=== PATIENT | female | born 1945 | race Caucasian/White ===

== ENCOUNTER → 2017-07-16 | Outpatient (CLI) | payer MEDICARE, OTHER | LOC: MC.RAD 10:45 | DX: Z12.31 Encounter for screening mammogram for malignant neoplasm of breast (principal) ==

== ENCOUNTER → 2018-07-03 | Outpatient (CLI) | payer MEDICARE, OTHER ==
[2018-07-03 11:43] LABS: BASO % 0.7 % (0.0-2.0); EOS # 0.1 (0.0-0.7); EOS % 1.2 % (0-4.0); GRAN # 2.6 (1.4-6.5); GRAN % 62.2 % (42.2-75.2); LYMPH # 1.1 (1.2-3.4); LYMPH % 27.3 % (20.0-51.0); MEAN CELL VOLUME 89 fl (80.0-100.0); MEAN CORPUSCULAR HEMOGLOBIN 30 pg (27.0-31.0); MEAN CORPUSCULAR HGB CONC 33 g/dl (33.0-37.0); MEAN PLATELET VOLUME 10.3 fl (7.4-10.4); MONO # 0.4 (0.1-0.6); MONO % 8.6 % (1.7-9.3); PLATELET COUNT 143 K/mm3 (130-400); RED BLOOD COUNT 4.06 M/mm3 (4.10-5.30); REDCELL DISTRIBUTION WIDTH-CV 13.2 % (11.5-14.5)
[2018-07-03 11:46] LABS: HEMATOCRIT 36.1 % (37.0-47.0)
[2018-07-03 11:59] LABS: ALANINE AMINOTRANSFERASE 24 U/L (9-52); ALBUMIN 3.7 gm/dL (3.5-5.0); ALKALINE PHOSPHATASE 68 U/L (50-136); ANION GAP 8 mmol/L (7-16); AST,SGOT 23 U/L (15-37); BILIRUBIN,TOTAL 0.9 mg/dL (0.0-1.0); BLOOD UREA NITROGEN 15 mg/dL (7-17); CALCIUM 9.1 mg/dL (8.4-10.2); CARBON DIOXIDE 27 mmol/L (22-30); CHLORIDE 103 mmol/L (98-107); CREATINE KINASE 52 U/L (30-135); CREATININE, serum 0.61 mg/dL (0.52-1.25); GLUCOSE 86 mg/dL (74-106); POTASSIUM 4.1 mmol/L (3.4-5.0); SODIUM 138 mmol/L (137-145); TOTAL PROTEIN 6.5 gm/dL (6.4-8.2)
[2018-07-03 12:12] LABS: TROPONIN-I < 0.012 ng/mL (0.000-0.034)
== END ==
LOC: COL.LAB 11:12
DX: R06.00 Dyspnea, unspecified (principal)

== ENCOUNTER → 2018-08-16 | Outpatient (CLI) | payer MEDICARE, OTHER | LOC: COL.RAD 14:20 | DX: J90 Pleural effusion, not elsewhere classified (principal); J98.4 Other disorders of lung | CPT/HCPCS: Q9967 ==

== ENCOUNTER → 2018-08-17 | Outpatient (CLI) | payer MEDICARE, OTHER | LOC: COL.VAS 12:09 | DX: I10 Essential (primary) hypertension (principal); R06.09 Other forms of dyspnea; I07.1 Rheumatic tricuspid insufficiency; I34.0 Nonrheumatic mitral (valve) insufficiency ==

== ENCOUNTER 2018-08-30 11:14 | Day surgery (SDC) | payer MEDICARE, OTHER ==
[~2018-08-30] VITALS: Ht 152.4 cm; Wt 62.3 kg
[2018-08-30] VITALS (9 sets, daily range): BP systolic 97–117; BP diastolic 49–77; PULSE 86–108; TEMP 96.9–98.1
[2018-08-30 11:43] LABS: HEMOGLOBIN 12.2 g/dl (12.5-16.0); MEAN CELL VOLUME 89 fl (80.0-100.0); MEAN CORPUSCULAR HEMOGLOBIN 29 pg (27.0-31.0); MEAN CORPUSCULAR HGB CONC 33 g/dl (33.0-37.0); MEAN PLATELET VOLUME 10.8 fl (7.4-10.4); PLATELET COUNT 161 K/mm3 (130-400); RED BLOOD COUNT 4.16 M/mm3 (4.10-5.30); REDCELL DISTRIBUTION WIDTH-CV 13.3 % (11.5-14.5)
[2018-08-30 11:46] LABS: HEMATOCRIT 36.9 % (37.0-47.0)
[2018-08-30 11:48] LABS: INR 1.1 (0.8-3.0); PROTHROMBIN TIME 12.7 SECONDS (9.7-12.8)
[2018-08-30 11:55] LABS: CREATININE, serum 0.72 mg/dL (0.52-1.25); POTASSIUM 3.3 mmol/L (3.4-5.0)
[2018-08-30] MEDS ORDERED: FOSAMAX 70MG TA70 MG PO (12:13)
[2018-08-30] MEDS ORDERED: ASPIRIN 81M81 MG/TA2 PO (12:14)
[2018-08-30] MEDS ORDERED: AMITRIPTYLINE H25 M1 PO (12:14)
[2018-08-30] MEDS ORDERED: COLACE 100100 MG/CAP PO (12:15)
[2018-08-30] MEDS ORDERED: LIPITOR20 MG PO (12:15)
[2018-08-30] MEDS ORDERED: LINZESS72 MCG PO (12:16)
[2018-08-30] MEDS ORDERED: ZESTRIL 20MG TA20 MG PO (12:18)
[2018-08-30] MEDS ORDERED: PRIL40 PO (12:18)
[2018-08-30] MEDS ORDERED: DITROPAN XL 5MG5 M1 PO (12:19)
[2018-08-30] MEDS ORDERED: EVISTA 60MG60 MG/TAB PO (12:20)
[2018-08-30] MEDS ORDERED: MIRALAX PA17 GM/Dose PO (12:20)
[2018-08-30] MEDS ORDERED: ZANTAC 150MG T150 MG PO (12:21)
[2018-08-30] MEDS ORDERED: VITAMIN D 1001000 IU (12:22)
[2018-08-30] MEDS ORDERED: MAXZIDE-25MG TA1 TAB PO (12:22)
[2018-08-30] MEDS ORDERED: ALDACTONE50 MG PO (14:52)
== END 2018-08-30 17:44 | disposition home or self-care (01) ==
LOC: COL.CAR 11:14
PROVIDERS: Internal Medicine Cardiovascular Disease
DX: I42.9 Cardiomyopathy, unspecified (principal); I38 Endocarditis, valve unspecified; I08.1 Rheumatic disorders of both mitral and tricuspid valves; E78.2 Mixed hyperlipidemia; I10 Essential (primary) hypertension; Z90.49 Acquired absence of other specified parts of digestive tract; Z90.710 Acquired absence of both cervix and uterus; Z79.82 Long term (current) use of aspirin; Z83.3 Family history of diabetes mellitus
CPT/HCPCS: J1644; J2704; Q9967

== ENCOUNTER → 2018-09-05 | Outpatient (CLI) | payer MEDICARE, OTHER ==
[~2018-09-05] MED LIST: ALDACTONE50 MG PO; AMITRIPTYLINE H25 M1 PO; ASPIRIN 81M81 MG/TA2 PO; COLACE 100100 MG/CAP PO; DITROPAN XL 5MG5 M1 PO; EVISTA 60MG60 MG/TAB PO; FOSAMAX 70MG TA70 MG PO; LINZESS72 MCG PO; LIPITOR20 MG PO; MAXZIDE-25MG TA1 TAB PO; MIRALAX PA17 GM/Dose PO; PRIL40 PO; VITAMIN D 1001000 IU; ZANTAC 150MG T150 MG PO; ZESTRIL 20MG TA20 MG PO
== END ==
LOC: MC.RAD 09:40
DX: Z12.31 Encounter for screening mammogram for malignant neoplasm of breast (principal)

== ENCOUNTER 2018-12-12 01:53 | Emergency (ER) | payer MEDICARE, OTHER ==
[~2018-12-12] VITALS: Ht 152.4 cm; Wt 58.6 kg
[2018-12-12 01:56] VITALS: TEMP 97.9
[2018-12-12 02:48] LABS: BASO % 0.3 % (0.0-2.0); EOS # 0.1 (0.0-0.7); EOS % 1.3 % (0-4.0); GRAN # 6.6 (1.4-6.5); GRAN % 75.2 % (42.2-75.2); HEMATOCRIT 38.8 % (37.0-47.0); HEMOGLOBIN 13.1 g/dl (12.5-16.0); LYMPH # 1.3 (1.2-3.4); MEAN CELL VOLUME 86 fl (80.0-100.0); MEAN CORPUSCULAR HEMOGLOBIN 29 pg (27.0-31.0); MEAN CORPUSCULAR HGB CONC 34 g/dl (33.0-37.0); MEAN PLATELET VOLUME 9.8 fl (7.4-10.4); MONO # 0.7 (0.1-0.6); MONO % 7.9 % (1.7-9.3); PLATELET COUNT 177 K/mm3 (130-400); RED BLOOD COUNT 4.52 M/mm3 (4.10-5.30); REDCELL DISTRIBUTION WIDTH-CV 14.6 % (11.5-14.5)
[2018-12-12 02:58] LABS: ALBUMIN 4.2 gm/dL (3.5-5.0); BILIRUBIN,TOTAL 0.9 mg/dL (0.0-1.0); CALCIUM 9.7 mg/dL (8.4-10.2); CREATININE, serum 0.71 mg/dL (0.52-1.25); POTASSIUM 4.1 mmol/L (3.4-5.0); TOTAL PROTEIN 7.1 gm/dL (6.4-8.2)
[2018-12-12 06:49] VITALS: BP 102/66; PULSE 92
== END 2018-12-12 06:50 | disposition home or self-care (01) ==
LOC: COL.ER 01:53
PROVIDERS: Emergency Medicine
DX: K59.00 Constipation, unspecified (principal); I10 Essential (primary) hypertension; E78.5 Hyperlipidemia, unspecified; K21.9 Gastro-esophageal reflux disease without esophagitis; Z90.710 Acquired absence of both cervix and uterus; Z79.82 Long term (current) use of aspirin
CPT/HCPCS: Q9967

== ENCOUNTER → 2019-09-25 | Outpatient (CLI) | payer MEDICARE, OTHER ==
[~2019-09-25] MED LIST changes: +ALDACTONE 25MG25 M1 PO; +BACTRIM 400 MG-1 TAB PO; +CITRUS CALCIUM1 TA1 PO; +COREG 6.256.25 MG/TA PO; +FLINTSTONES COM1 CT1 PO; +K-DUR20 MEQ PO; +LASIX 20MG TABL20 MG PO; +METAMUCIL3.4 GM/DOS PO; +NATURE'S BLE1000 MCG PO
== END ==
LOC: MC.RAD 09:51
DX: Z12.31 Encounter for screening mammogram for malignant neoplasm of breast (principal); Z95.0 Presence of cardiac pacemaker

== ENCOUNTER → 2020-09-26 | Outpatient (CLI) | payer MEDICARE, OTHER | LOC: MC.RAD 09:21 | DX: Z12.31 Encounter for screening mammogram for malignant neoplasm of breast (principal) ==

== ENCOUNTER → 2021-10-07 | Outpatient (CLI) | payer MEDICARE, OTHER | LOC: MC.RAD 13:00 | DX: Z12.31 Encounter for screening mammogram for malignant neoplasm of breast (principal) ==

== ENCOUNTER → 2023-03-30 | Outpatient (REF) | payer MEDICARE, OTHER ==
[2023-03-30 14:35] LABS: ANISOCYTOSIS 1+; BAND 9 % (0-10); LYMPHOCYTE 2 % (20.0-51.0); NEUTROPHILS 85 % (42.0-75.2); PLATELET ESTIMATE NORMAL (NORMAL)
== END ==
LOC: ZCOL.LAB 14:06
PROVIDERS: Family Medicine
DX: E03.8 Other specified hypothyroidism (principal); K75.9 Inflammatory liver disease, unspecified; I34.0 Nonrheumatic mitral (valve) insufficiency; R19.7 Diarrhea, unspecified